=== PATIENT | female | born 1970 | race Caucasian/White ===

== ENCOUNTER 2021-07-28 23:26 | Emergency (ER) | payer OTHER ==
[~2021-07-28] VITALS: Ht 160 cm; Wt 81.6 kg
[~2021-07-28 23:26] MED LIST: ACIDOPHILUS1 EACH PO; CINNAMON500 MG PO; ESTRADIOL2 MG PO; FLAXSEED1000 MG PO; HYDROXYCHLOROQ200 MG PO; NORCO 5-325 TA1 EACH PO; ONE DAILY1 EAC1 PO; SULFAZINE EC500 MG PO; VITAMIN D33000 UNIT PO
== END 2021-07-29 01:27 | disposition home or self-care (01) ==
LOC: ED 23:26
DX: M54.2 Cervicalgia (principal); Z88.8 Allergy status to other drugs, medicaments and biological substances; Z79.899 Other long term (current) drug therapy
CPT/HCPCS: 96372; 99283; A9270; J1170

== ENCOUNTER 2023-07-17 11:48 | Day surgery (SDC) | payer OTHER ==
[~2023-07-17] VITALS: Ht 160 cm; Wt 79.5 kg
[~2023-07-17 11:48] MED LIST changes: +ARAVA10 MG PO
[2023-07-17 12:06] VITALS: BP 141/83
[2023-07-17] MEDS ORDERED: HYDROXYCHLOROQ200 MG PO (12:09)
--- NOTE | 2023-07-17 13:39 | NUR ---
07/17/23 Yaw9 Amina Kennedy 1331- PT ARRIVES TO PACU, LEFT LATERAL POSITION. ABD SOFT, NON DISTENDED. PT IS AWAKE BUT DROWSY. DENIES PAIN AND NAUSEA. LR INFUSING TO RH IV, O2 AT 2L PER NC. BREATHING EVEN AND NON LABORED. ALL MONITORS IN PLACE. PT ENCOURAGED TO PASS GAS. WILL CONTINUE TO MONITOR. 1337- PT SATS REMAIN 100% ON 2L PER NC, MOVED TO ROOM AIR AT THIS TIME.
[2023-07-17 14:30] VITALS: BP 123/79
--- NOTE | 2023-07-19 13:56 | OR ---
[facility] [address] [place], [place] [address] Signed DATE OF OPERATION: 07/17/2023 SURGEON: Neli Knight MD PREOPERATIVE DIAGNOSIS: Colon screening. POSTOPERATIVE DIAGNOSIS: Normal colon to cecum. PROCEDURE: Total colonoscopy to cecum. ANESTHESIA: Intravenous sedation; fentanyl 200 mcg and Versed 12 mg. INDICATION: This 53-year-old white woman is a patient of Dr. Geronimo. In [place], [place] and was referred for screening colonoscopy. She has no family history of colon cancer though her father has had polyps. She has no symptoms of bleeding, diarrhea or constipation at this time. She understands the risk of screening colonoscopy including but not limited to bleeding, infection, and perforation and wished to proceed. FINDINGS: The prep was excellent. Complete colonoscopy was undertaken of the cecum without question. She had no evidence of polyps, diverticular formation, colitis, or cancer. DESCRIPTION OF PROCEDURE: The patient was brought to the endoscopy suite and placed in the lateral decubitus position, given intravenous sedation to the point of slurred speech and nystagmus. Digital rectal examination was normal. An Olympus video colonoscope was passed in the rectum and manipulated throughout the colon. She had a very long colon as it turns out. Abdominal wall stabilization was required and additional sedation given as needed. The scope was ultimately advanced to the cecum where the ileocecal valve and appendiceal orifice were fully visualized and found to be normal. Scope was then withdrawn and examination throughout showed no sign of abnormality specifically no polyps, diverticular formation, colitis, or cancer. Retroflexed view was normal as well. The scope was removed and the patient was taken to the recovery room in good condition. Electronically Signed By: NELI KNIGHT MD 07/19/23 1356 PATIENT NAME: SHAKIRA KAT OPERATIVE REPORT DATE OF : 70 REPORT #: [id number] PHYSICIAN: NELI KNIGHT MD PCP: GIULIANO GERONIMO MD REPORT IS CONFIDENTIAL AND NOT TO BE RELEASED WITHOUT AUTHORIZATION [facility] [address] [facility] [place], [place] [address] Signed CONCLUSION DIAGNOSIS: Normal colon. PLAN: Recommend repeat colonoscopy in 10 years based on current guidelines, sooner if symptoms should occur. She will return to the ongoing care of Dr. Geronimo. MD POP Diego/MODL /[id number] cc: Dr. Geronimo Copies: ~ Electronically Signed By: NELI KNIGHT MD 07/19/23 1356 PATIENT NAME: SHAKIRA KAT OPERATIVE REPORT DATE OF : 70 REPORT #: [id number] PHYSICIAN: NELI KNIGHT MD PCP: GIULIANO GERONIMO MD REPORT IS CONFIDENTIAL AND NOT TO BE RELEASED WITHOUT AUTHORIZATION
== END 2023-07-17 14:25 | disposition home or self-care (01) ==
LOC: OPS 11:48 → DS 11:53 → OPS 13:00 → DS 13:00 → OPS 14:25
PROVIDERS: ATTEND Surgery
PROC: 0DJD8ZZ Inspection of Lower Intestinal Tract, Via Natural or Artificial Opening Endoscopic (ICD-10-PCS; principal; 2023-07-17 13:00)
DX: Z12.11 Encounter for screening for malignant neoplasm of colon (principal); L40.50 Arthropathic psoriasis, unspecified; K21.9 Gastro-esophageal reflux disease without esophagitis; Z90.711 Acquired absence of uterus with remaining cervical stump; Z88.5 Allergy status to narcotic agent; Z88.8 Allergy status to other drugs, medicaments and biological substances; Z79.899 Other long term (current) drug therapy
CPT/HCPCS: G0121; 99153; G0500; J2250; J3010; J7121